=== PATIENT | male | born 1995 | race Caucasian/White ===

== ENCOUNTER 2017-06-09 10:19 | Emergency (ER) | payer BC, OTHER ==
[2017-06-09 12:11] VITALS: BP 119/97
--- NOTE | 2017-06-09 13:08 | UC ---
FLU HPI - HPI Summary HPI Summary: Pt c/o of nasal congestion, fatigue, malaise, sinus pressure and pain X 2 weeks. - History of Current Complaint Chief Complaint: UCGeneralIllness Stated Complaint: FEVER,ACHY,MEJIAS,ACOSTA,COUGH Time Seen by Provider: 06/09/17 12:53 Hx Obtained From: Patient Onset/Duration: Gradual Onset, Lasting Weeks, Still Present Severity Currently: Moderate Severity Initially: Mild Pain Intensity: 4 Associated Signs & Symptoms: Positive: Fever, Nasal Congestion, Headache Related Hx: Possible Flu/Infectious Exposure - Allergy/Home Medications Allergies/Adverse Reactions: Allergies Allergy/AdvReac Type Severity Reaction Status Date / Time hazelnut Allergy Unknown Verified 06/09/17 12:03 Reaction Details Home Medications: Home Medications Aspirin/Acetaminophen/Caffeine [Excedrin Migraine Caplet] 1 tab PO Q6HR PRN 04/14 [History Confirmed 06/09/17] Dextromethorphn/Acetaminoph/Cp [Vicks Nyquil Cold & Flu Liquid] 30 ml PO Q6HR PRN 06/09/17 [History Confirmed 06/09/17] Isotretinoin [Myorisan] 2 tab PO BEDTIME 06/09/17 [History Confirmed 06/09/17] Propranolol TAB* [Inderal TAB*] 1 tab PO DAILY 06/09/17 [History Confirmed 06/09] PMH/Surg Hx/FS Hx/Imm Hx Previously Healthy: Yes - Surgical History Surgical History: None - Family History Known Family History: Positive: Cardiac Disease - Social History Occupation: Employed Full-time Lives: With Family Alcohol Use: Rare Substance Use Type: None Smoking Status (MU): Never Smoked Tobacco Have You Smoked in the Last Year: No - Immunization History Most Recent Influenza Vaccination: none Review of Systems Constitutional: Fever, Chills, Fatigue Skin: Negative Eyes: Negative ENT: Sinus Congestion, Sinus Pain/Tenderness Respiratory: Cough Cardiovascular: Negative Gastrointestinal: Negative Genitourinary: Negative Motor: Negative Neurovascular: Negative Musculoskeletal: Myalgia Neurological: Headache Psychological: Negative Is Patient Immunocompromised?: No All Other Systems Reviewed And Are Negative: Yes Physical Exam Triage Information Reviewed: Yes Appearance: Ill-Appearing Vital Signs: Initial Vital Signs Temp 98.6 F 06/09/17 12:07 Pulse 99 06/09/17 12:07 Resp 20 06/09/17 12:07 BP 119/97 06/09/17 12:07 Pulse Ox 100 06/09/17 12:07 Vital Signs Reviewed: Yes Eye Exam: Normal ENT Exam: Other ENT: Positive: Nasal congestion, TM bulging, Sinus tenderness Dental Exam: Normal Neck exam: Normal Respiratory Exam: Normal Cardiovascular Exam: Normal Musculoskeletal Exam: Normal Neurological Exam: Normal Psychological Exam: Normal Skin Exam: Normal Diagnostics - Laboratory Diagnostic Studies Completed/Ordered: rapid flu: negative Flu Course/Dx - Differential Dx/Diagnosis Differential Diagnosis/HQI/PQRI: Influenza, Other - sinusitis Provider Diagnoses: sinusitis Discharge - Discharge Plan Condition: Stable Disposition: HOME Prescriptions: Amoxicillin PO (*) [Amoxicillin 875 MG (*)] 875 mg PO Q12H #20 tab Guaifenesin/Pseudo 600/60(NF) [Mucinex D 600/60 (NF)] 1 tab PO DAILY #10 tab Patient Education Materials: Sinusitis (ED) Referrals: Jan Dee, CONTRACTS ADMINISTRATOR [Primary Care Provider] - If Needed
== END 2017-06-09 13:39 | disposition home or self-care (01) ==
LOC: UCCORT 10:19
DX: J32.9 Chronic sinusitis, unspecified (principal)
CPT/HCPCS: 87502; 99212; G0463

== ENCOUNTER 2018-05-05 12:00 | Emergency (ER) | payer BC ==
[2018-05-05 13:09] VITALS: BP 120/65
--- NOTE | 2018-05-05 13:17 | UC ---
Respiratory Complaint HPI - HPI Summary HPI Summary: cough and chest congestion for one week cough is dry , nasal congestion, pnd no sore throat , no fever , no chills - History of Current Complaint Chief Complaint: UCRespiratory Stated Complaint: COUGH,CONGESTION Time Seen by Provider: 05/05/18 13:10 Hx Obtained From: Patient Onset/Duration: Gradual Onset, Lasting Days - 7, Still Present Timing: Constant Severity Initially: Moderate Severity Currently: Moderate Pain Intensity: 0 Character: Cough: Nonproductive Aggravating Factors: Exertion, Deep Breaths Alleviating Factors: Nothing Associated Signs And Symptoms: Positive: URI, Nasal Congestion. Negative: Dyspnea, Fever, Chills, Wheezing, Edema, Hoarseness, Sinus Discomfort - Allergies/Home Medications Allergies/Adverse Reactions: Allergies Allergy/AdvReac Type Severity Reaction Status Date / Time hazelnut Allergy Unknown Verified 05/05/18 13:04 Reaction Details Home Medications: Home Medications Multivitamin [Multivitamins] 1 cap PO DAILY 05/05/18 [History Confirmed 05/05/18 ] PMH/Surg Hx/FS Hx/Imm Hx Previously Healthy: Yes - Surgical History Surgical History: None - Family History Known Family History: Positive: Cardiac Disease - Social History Alcohol Use: Occasionally Substance Use Type: None Smoking Status (MU): Never Smoked Tobacco Have You Smoked in the Last Year: No - Immunization History Most Recent Influenza Vaccination: none Review of Systems All Other Systems Reviewed And Are Negative: Yes Constitutional: Positive: Negative Skin: Positive: Negative Eyes: Positive: Negative ENT: Positive: Sore Throat, Nasal Discharge Respiratory: Positive: Cough Cardiovascular: Positive: Negative Is Patient Immunocompromised?: No Physical Exam Triage Information Reviewed: Yes Appearance: Well-Appearing, No Pain Distress, Well-Nourished Vital Signs: Initial Vital Signs Temp 97.6 F 05/05/18 13:06 Pulse 61 05/05/18 13:06 Resp 16 05/05/18 13:06 BP 120/65 05/05/18 13:06 Pulse Ox 99 05/05/18 13:06 Vital Signs Reviewed: Yes Eye Exam: Normal Eyes: Positive: Conjunctiva Clear ENT: Positive: Normal ENT inspection, Hearing grossly normal, Pharynx normal, Nasal congestion, TMs normal Respiratory: Positive: Chest non-tender, Lungs clear, Normal breath sounds Cardiovascular: Positive: RRR, No Murmur, Pulses Normal Diagnostic Evaluation - Laboratory O2 Sat by Pulse Oximetry: 99 Respiratory Course/Dx - Differential Dx/Diagnosis Provider Diagnosis: URI (upper respiratory infection) Discharge - Sign-Out/Discharge Documenting (check all that apply): Patient Departure All imaging exams completed and their final reports reviewed: No Studies - Discharge Plan Condition: Stable Disposition: HOME Patient Education Materials: Upper Respiratory Infection (ED) Referrals: Jan Dee, [employer] WHEELER [Primary Care Provider] - If Needed Additional Instructions: viral illness no need for antibiotics cont. with rest, increase fluid, Tylenol as needed for pain and fever follow up as needed - Billing Disposition and Condition Condition: STABLE Disposition: Home
== END 2018-05-05 13:20 | disposition home or self-care (01) ==
LOC: UCCORT 12:00
DX: J06.9 Acute upper respiratory infection, unspecified (principal)
CPT/HCPCS: 99211; G0463

== ENCOUNTER 2018-08-24 10:34 | Emergency (ER) | payer BC ==
[2018-08-24 10:57] VITALS: BP 123/67
--- NOTE | 2018-08-24 11:05 | UC ---
Throat Pain/Nasal Cj HPI - HPI Summary HPI Summary: Patient presents to urgent care for evaluation. Patient reviewed reports 4 weeks of progressive head congestion ear popping. Patient states he goes allergies took allergy medicine for a couple days as well as Mucinex. Patient states he was getting better until about 7 days ago and the symptoms came back. Patient states her last 3 days he's had increasing pain and discomfort in his right ear. Patient states she's been using Mucinex with little improvement. Patient reports fevers over the weekend but none today. No nausea vomiting but decreased appetite and energy. Patient states when he blows his nose he is not getting thick green secretions no blood. Had some postnasal drip that has continued. Patient was in a dorm faculty department. States is very dry. Patient without a history of sinus or throat surgery. Patient's medications reviewed this visit. Patient has been using netti pot with short term relief Pt's medications reviewed this visit - History of Current Complaint Chief Complaint: UCRespiratory Stated Complaint: SINUS RIGHT EAR Time Seen by Provider: 08/24/18 10:41 Hx Obtained From: Patient Severity: Mild Pain Intensity: 0 Pain Scale Used: 0-10 Numeric - Allergies/Home Medications Allergies/Adverse Reactions: Allergies Allergy/AdvReac Type Severity Reaction Status Date / Time hazelnut Allergy Unknown Verified 08/24/18 10:44 Reaction Details seasonal allergies Allergy Unknown Unknown Uncoded 08/24/18 10:45 Reaction Details Home Medications: Home Medications Erenumab-Aooe [Aimovig Autoinjector] 70 mg SQ MONTHLY 08/24/18 [History Confirmed 08/24/18] Guaifen/Phenyleph/Acetaminophn [Mucinex Sinus-Max Severe Liq] 180 ml PO PRN [History] Ibuprofen TAB* [Advil TAB*] 400 mg PO Q6H PRN 08/24/18 [History Confirmed ] PMH/Surg Hx/FS Hx/Imm Hx Previously Healthy: Yes - Surgical History Surgical History: None - Family History Known Family History: Positive: Cardiac Disease, Non-Contributory - Social History Occupation: Employed Full-time Lives: Dormitory/Roommates - faculty apartment Alcohol Use: Occasionally Substance Use Type: None Smoking Status (MU): Never Smoked Tobacco Have You Smoked in the Last Year: No - Immunization History Most Recent Influenza Vaccination: none Review of Systems All Other Systems Reviewed And Are Negative: Yes Constitutional: Positive: Fever ENT: Positive: Sore Throat, Ear Ache, Nasal Discharge, Sinus Congestion, Sinus Pain/Tenderness Respiratory: Positive: Negative Cardiovascular: Positive: Negative Gastrointestinal: Positive: Negative Physical Exam - Summary Physical Exam Summary: Vital Signs Reviewed: Yes A+Ox3, nasal congestion Eyes: Conjunctiva Clear, BRAD. EOM intact and full ENT: Hearing grossly normal TM x 2 right ear with fluid, mild erythema, left wnl, turbinates inflammed and boggy, + PND - thick yellow/green, mmoist, uvula midline, no exudate, no erythema Neck: Positive: Supple Respiratory: Positive: No respiratory distress, No accessory muscle use + CTA throughout no w/r Cardiovascular: RRR nl s1, s2 no m/r CBT <2 sec abd soft + BS nt/nd no guarding, no distension Musculoskeletal Exam: CONNOR x 4 without difficulty Strength Intact, ROM Intact Neurological: Positive: Alert, + sensation throughout Psychological: Positive: Normal Response To Family Skin: Positive: no rash, no ecchymosis Triage Information Reviewed: Yes Vital Signs: Initial Vital Signs Temp 98.5 F 08/24/18 10:49 Pulse 71 08/24/18 10:49 Resp 15 08/24/18 10:49 BP 123/67 08/24/18 10:49 Pulse Ox 100 08/24/18 10:49 Throat Pain/Nasal Course/Dx - Course Course Of Treatment: Pt presents with 3-4 weeks of progressive sinus congestion postnasal drip and eat green secretions. Patient reports fever since this weekend. Patient's been taking Mucinex and using netti pop with short-term relief. Vital signs reviewed. Patient's exam reveals fluid with mild erythema in the right ear, turbinates inflamed and boggy with thick postnasal drip. Recommend patient start antibiotics. Discussed with patient secretion precaution. Change toothbrush in pillowcase. Motrin Tylenol. Humidify air. Patient declined work note. Strict return precautions. Patient comfortable in agreement with plan. - Differential Dx/Diagnosis Provider Diagnosis: Rhinosinusitis Discharge - Sign-Out/Discharge Documenting (check all that apply): Patient Departure All imaging exams completed and their final reports reviewed: No Studies - Discharge Plan Condition: Stable Disposition: HOME Prescriptions: Amoxicillin PO (*) [Amoxicillin 875 MG (*)] 875 mg PO BID #20 tab Patient Education Materials: Rhinosinusitis (ED) Referrals: Jan Dee, [employer] WORKER [Primary Care Provider] - Additional Instructions: - Stay well hydrated. Drink plenty of non-alcoholic, non-caffinated beverages. - Alternate ibuprofen (Advil, Motrin) 600mg and Tylenol every 3 hours for pain or fever. Take with food. Do NOT take for more than 4-5 days. - These infections are spread by secretions - do NOT share eating or drinking utensils - clean items you share with other people such as cell phones, computer mouse, TV remote, computer tablets,etc. Once you have been antibiotics for 2 days, change your toothbrush and your pillowcase. - get plenty of restful sleep - humidify the air in the room where you sleep - boil water, run a hot steam shower, vaporizer, cups of water by heat register - okay to take over the counter decongestant and cough medication - it is recommended you take an allergy medication (Claritin, Lucy, Zyrtec) - contact your doctor or return with questions or concerns - Billing Disposition and Condition Condition: STABLE Disposition: Home
== END 2018-08-24 11:23 | disposition home or self-care (01) ==
LOC: UCCORT 10:34
DX: J32.9 Chronic sinusitis, unspecified (principal); Z91.09 Other allergy status, other than to drugs and biological substances; Z91.018 Allergy to other foods
CPT/HCPCS: 99212; G0463